=== PATIENT | female | born 2000 | race Native Hawaiian/Other Pacific Islander ===

== ENCOUNTER 2020-03-13 10:10 | Emergency (ER) | payer MEDICAID ==
[~2020-03-13] VITALS: Ht 162.6 cm; Wt 77.3 kg
[2020-03-13] MEDS ORDERED: ondansetron/PF 4mg/2ml inj IV ONE (10:40)
[2020-03-13] MEDS ORDERED: morphine 4 MG/ML inj SYRINge IV PRN (10:40)
[2020-03-13] MEDS ORDERED: normal saline 1000ML IV soln IVB ONE (10:40)
[2020-03-13] MEDS ORDERED: LIDOcaine/epinephrine/tetracaine TOPICAL sol 3 ML syringe TOP ONE (10:40)
--- NOTE | 2020-03-13 11:10 | NUR ---
Pt was taken to CT after line and meds initiated
[2020-03-13 11:11] LABS: BASOPHILS % (AUTO) 0.6 % (0-1); EOSINOPHILS # (AUTO) 0.1 X10'3 (0-0.9); EOSINOPHILS % (AUTO) 1.5 % (0-6); HEMATOCRIT 42.7 % (35.0-45.0); HEMOGLOBIN 14.3 g/dl (12.0-16.0); LYMPHOCYTES # (AUTO) 2.2 X10'3 (1.1-4.8); LYMPHOCYTES % (AUTO) 27.9 % (21-51); MEAN CORPUSCULAR HEMOGLOBIN 30.4 PG (27.0-31.0); MEAN CORPUSCULAR HGB CONC 33.5 g/dL (33.0-36.5); MEAN CORPUSCULAR VOLUME 90.8 FL (78-98); MEAN PLATELET VOLUME 9.8 FL (7.4-10.4); MONOCYTES # (AUTO) 0.5 X10'3 (0-0.9); MONOCYTES % (AUTO) 6.8 % (2-12); NEUTROPHILS # (AUTO) 5.1 X10'3 (1.8-7.7); NEUTROPHILS % (AUTO) 63.2 % (42-75); PLATELET COUNT 228 X10'3 (140-440); RED CELL DISTRIBUTION WIDTH 13.3 % (11.5-14.5)
[2020-03-13 11:21] LABS: HCG SERUM QL NEGATIVE
[2020-03-13 11:25] LABS: ALANINE AMINOTRANSFERASE 21 U/L (12-78); ALBUMIN/GLOBULIN RATIO 1.2 (1.1-1.5); ALKALINE PHOSPHATASE 73 IU/L (46-116); ANION GAP 10 (8-16); ASPARTATE AMINO TRANSFERASE 11 U/L (10-37); BILIRUBIN,TOTAL 0.3 MG/DL (0.1-1.0); BLOOD UREA NITROGEN 4 MG/DL (7-18); BUN/CREATININE RATIO 5.3 (6.6-38.0); CALCIUM 9.1 MG/DL (8.5-10.1); CHLORIDE 107 MMOL/L (99-107); CREATININE 0.75 MG/DL (0.40-0.90); GLUCOSE 97 MG/DL (70-104); POTASSIUM 3.7 MMOL/L (3.5-5.1); SODIUM 141 MMOL/L (135-145); TOTAL PROTEIN 7.4 G/DL (6.4-8.2); eGFR > 90 ML/MIN
--- NOTE | 2020-03-13 11:30 | NUR ---
Pt back from CT and pt taken to X-Ray
[2020-03-13] MEDS ORDERED: ketorolac trometh. 30mg/ml inj. IV ONE (11:55)
--- NOTE | 2020-03-13 12:00 | NUR ---
PT BACK FROM X-RAY, NEW VS BEING TAKEN
[2020-03-13] MEDS ORDERED: ACET-3067 PO (12:14)
[2020-03-13] MEDS ORDERED: CYCL-1 PO (12:14)
--- NOTE | 2020-03-13 12:15 | NUR ---
PT C-COLLAR REMOVED BY MD DE DIOS.
[2020-03-13 12:57] VITALS: BP 108/68
== END 2020-03-13 12:58 | disposition home or self-care (01) ==
LOC: ER 10:12
DX: S13.8XXA Sprain of joints and ligaments of other parts of neck, initial encounter (principal); S80.02XA Contusion of left knee, initial encounter; S40.011A Contusion of right shoulder, initial encounter; S60.511A Abrasion of right hand, initial encounter; S80.212A Abrasion, left knee, initial encounter; S80.211A Abrasion, right knee, initial encounter; M25.521 Pain in right elbow; Z79.899 Other long term (current) drug therapy; V87.8XXA Person injured in other specified noncollision transport accidents involving motor vehicle (traffic), initial encounter; Y93.89 Activity, other specified; Y92.89 Other specified places as the place of occurrence of the external cause; Y99.8 Other external cause status
CPT/HCPCS: 36415; 70450; 72125; 73030; 73080; 73130; 73564; 80053; 84703; 85025; 96374; 96375; 99285; J1885; J2270; J2405; J7030